=== PATIENT | female | born 1955 | race Caucasian/White ===

== ENCOUNTER 2018-08-17 20:25 | Emergency (ER) | payer MEDICARE, OTHER ==
[~2018-08-17] VITALS: Ht 170.2 cm; Wt 63.5 kg
[2018-08-17 20:46] VITALS: BP 109/79
[2018-08-17] MEDS ORDERED: oxyCODONE/APAP (5/325 MG) 1 UDTAB TABLET ONE (21:21)
[2018-08-17] MEDS ORDERED: oxyCODONE/APAP (5/325 MG) 1 UDTAB TABLET PO ONE (21:30)
== END 2018-08-17 23:01 | disposition home or self-care (01) ==
LOC: ER 20:30
DX: S42.252A Displaced fracture of greater tuberosity of left humerus, initial encounter for closed fracture (principal); F42.8 Other obsessive-compulsive disorder; F20.9 Schizophrenia, unspecified; F32.9 Major depressive disorder, single episode, unspecified; W18.09XA Striking against other object with subsequent fall, initial encounter; Y93.89 Activity, other specified; Y92.002 Bathroom of unspecified non-institutional (private) residence as the place of occurrence of the external cause; Y99.8 Other external cause status
CPT/HCPCS: 73060-TC

== ENCOUNTER 2020-07-07 20:16 | Emergency (ER) | payer MEDICARE, OTHER ==
[~2020-07-07] VITALS: Ht 170.2 cm; Wt 66.7 kg
--- NOTE | 2020-07-07 20:45 | NUR ---
BIBS FOR C/O R RIBS PAIN S/P "I WAS DIGGING IN THE TRASH CAN AND I FELL ON MY BACK" PT DENIED HITTING THE HEAD OR KO. - H/A, - DIZZINESS. AMBULATORY W. STEADY GAITS TO BED 11. VSS. WILL CONT TO MONITOR,
[2020-07-07] MEDS ORDERED: KETOROLAC TROMETHAMINE INJ 30 MG/ML VIAL ONE (20:59)
[2020-07-07] MEDS: KETOROLAC TROMETHAMINE INJ 60 MG/2 ML VIAL IM ONE (21:07)
[2020-07-07] MEDS ORDERED: IBUP-1957 PO (21:15)
[2020-07-07] MEDS ORDERED: LIDO30AD10 TP (21:15)
--- NOTE | 2020-07-07 21:24 | NUR ---
PT IS WALKING IN THE HALLWAY AND VERY ANXIOUS TO LEAVE THE HOSPITAL. MADE AWARE. DR RIVERA CLEARED THE PT FOR D/C. Patient discharged to home in stable condition. Rx and Written and verbal after care instructions given. Patient verbalizes understanding of instruction.
[2020-07-07 21:27] VITALS: BP 128/79
== END 2020-07-07 21:27 | disposition home or self-care (01) ==
LOC: ER 20:23
DX: S22.31XA Fracture of one rib, right side, initial encounter for closed fracture (principal); I10 Essential (primary) hypertension; F20.9 Schizophrenia, unspecified; F42.9 Obsessive-compulsive disorder, unspecified; F32.9 Major depressive disorder, single episode, unspecified; F17.200 Nicotine dependence, unspecified, uncomplicated; Z79.899 Other long term (current) drug therapy; W18.39XA Other fall on same level, initial encounter; Y93.89 Activity, other specified; Y92.89 Other specified places as the place of occurrence of the external cause; Y99.8 Other external cause status
CPT/HCPCS: 71250; 96372; 99284; J1885